=== PATIENT | female | born 1950 | race Two or more races ===

== ENCOUNTER 2025-02-10 14:06 | Emergency (ER) | payer MEDICAID ==
[~2025-02-10] VITALS: Ht 167.6 cm; Wt 82.0 kg
[2025-02-10 14:12] VITALS: O2SAT 99
[2025-02-10 15:15] LABS: BASOPHILS % 0.1 % (0.0-2.0); EOSINOPHILS % 1.6 % (0.0-5.0); HEMATOCRIT. 42.7 % (36.0-48.0); HEMOGLOBIN. 14.2 g/dL (12.0-16.0); LYMPHOCYTES % 52.2 % (20.0-50.0); MEAN PLATELET VOLUME 8.3 fl (7.4-10.4); MONOCYTES % 6.1 % (2.0-8.0); NEUTROPHILS % 40.0 % (40.0-76.0); PLATELET 220 x1000/uL (130-400); RED BLOOD CELL COUNT 4.69 mill/uL (4.2-5.4); RED CELL DISTRIBUTION WIDTH 13.9 % (11.6-14.6)
[2025-02-10 15:28] LABS: INR 1.0
[2025-02-10 15:32] LABS: CREATININE 0.8 mg/dL (0.6-1.0)
[2025-02-10 15:33] LABS: PROTEIN TOTAL 6.6 g/dL (6.0-8.3); TROPONIN I HIGH SENSITIVITY < 4 ng/L (3.0-34); UREA NITROGEN BLOOD 12 mg/dL (9-23)
[2025-02-10 15:34] LABS: ASPARTATE AMINOTRANSFERASE 20 IU/L (<34)
[2025-02-10 15:35] LABS: BILIRUBIN DIRECT 0.1 mg/dL (<=3.0); BILIRUBIN TOTAL 0.6 mg/dL (0.1-1.0)
[2025-02-10 17:25] VITALS: BP 144/60; PULSE 60; RESP 18; TEMP 37.1; O2SAT 98
== END 2025-02-10 17:26 | disposition left against medical advice (07) ==
LOC: ER 14:06 → EDBEDREQTM 16:25 → EDBEDREQ 16:25 → CANBEDREQ 17:24 → ER 17:26
DX: R07.2 Precordial pain (principal); R06.02 Shortness of breath; J45.909 Unspecified asthma, uncomplicated; Z88.2 Allergy status to sulfonamides; Z86.79 Personal history of other diseases of the circulatory system; Z79.899 Other long term (current) drug therapy
CPT/HCPCS: 36415; 71045; 80048; 80076; 83735; 83880; 84484; 85025; 85379; 93005; 99285